=== PATIENT | male | born 1975 | race Caucasian/White ===

== ENCOUNTER 2019-05-09 17:54 | Inpatient (IN) | payer SELFPAY ==
[2019-05-09] MEDS ORDERED: BUPIVACAINE 0.5% PF 10 ML VIAL ONE (18:29)
[2019-05-09] MEDS ORDERED: ONDANSETRON 4 MG/2 ML VIAL ONE (18:29)
[2019-05-09] MEDS ORDERED: LIDOCAINE 1% MPF 5 ML VIAL ONE (18:29)
[2019-05-09] MEDS ORDERED: MORPHINE 4 MG/ML SYR ONE (18:29)
--- NOTE | 2019-05-09 18:29 | RAD REPORT ---
EXAM DESCRIPTION: RAD - Hand Left 3 View - 05/09/2019 6:22 pm CLINICAL HISTORY: SMASH INJURY COMPARISON: <Comparisons> FINDINGS: Mildly displaced fracture of the middle phalanx of the fourth finger is seen. Mild tuft fr acture is also present distal fourth finger.
[2019-05-09] MEDS ORDERED: TETANUS & DIPHTHERIA TOX,ADULT 0.5 ML VIAL ONE (18:30)
[2019-05-09] MEDS ORDERED: AMPICILLIN/SULB 1.5 GM/100 ML BAG IV SCH (19:00)
--- NOTE | 2019-05-09 19:55 | ER ---
Nurse's Notes [facility] Name: Lio Burton Age: 43 yrs Sex: Male : 1975 Arrival Date: 05/09/2019 Time: 17:59 Bed 17 Private MD: Diagnosis: Laceration without foreign body of left little finger without damage to nail;Laceration without foreign body of left middle finger with damage to nail;Laceration without foreign body of left ring finger without damage to nail;Displaced fracture of medial phalanx of left ring finger-Open Fracture;Mild Tuft Fracture of Left Distal Fourth Finger Presentation: 05/09 18:04 Presenting complaint: Patient states: I cut my fingers on my right hand under the lawn la1 mower, multiple lacerations to distal fingers on left hand, no bleeding at this time. Transition of care: patient was not received from another setting of care. Complicating Factors: There are no complicating factors for this patient. Onset of symptoms was May 09, 2019. Risk Assessment: Do you want to hurt yourself or someone else? Patient reports no desire to harm self or others. Initial Sepsis Screen: Does the patient meet any 2 criteria? No. Patient's initial sepsis screen is negative. Does the patient have a suspected source of infection? No. Patient's initial sepsis screen is negative. Care prior to arrival: None. 18:04 Method Of Arrival: Ambulatory la1 18:04 Acuity: MAY 3 la1 Historical: - Allergies: 18:05 No Known Allergies; la1 - PMHx: 18:05 None; la1 - Immunization history:: Adult Immunizations up to date. - Social history:: Smoking status: Patient uses tobacco products, smokes one pack cigarettes per day. - Ebola Screening: : No symptoms or risks identified at this time. Screenin:30 Abuse screen: Denies threats or abuse. Nutritional screening: No deficits noted. em Tuberculosis screening: No symptoms or risk factors identified. Fall Risk None identified. Assessment: 18:30 General: Appears in no apparent distress. uncomfortable, Behavior is calm, cooperative. em Pain: Complains of pain in dorsal aspect of distal phalanx of left middle finger, dorsal aspect of distal phalanx of left ring finger and dorsal aspect of distal phalanx of left little finger Pain currently is 10 out of 10 on a pain scale. Pain began 1 hour ago. Neuro: Level of Consciousness is awake, alert, obeys commands, Oriented to person, place, time, situation. Cardiovascular: Capillary refill < 3 seconds Patient's skin is warm and dry. Respiratory: Airway is patent Respiratory effort is even, unlabored, Respiratory pattern is regular, symmetrical. Derm: Skin is intact, is healthy with good turgor, Skin is pink, warm \T\ dry. Musculoskeletal: Range of motion: intact in DIP of left little finger, DIP of left ring finger and DIP of left middle finger. Injury Description: Laceration sustained to dorsal aspect of distal phalanx of left middle finger, dorsal aspect of distal phalanx of left ring finger and dorsal aspect of distal phalanx of left little finger is contaminated, 0.5 to 2.5 cm long, bleeding moderately, was sustained 1-2 hours ago. is bleeding a small amount. 19:48 Reassessment: No changes from previously documented assessment. Patient and/or family tr5 updated on plan of care and expected duration. Pain level reassessed. Patient is alert, oriented x 3, equal unlabored respirations, skin warm/dry/pink. 20:46 Reassessment: No changes from previously documented assessment. Patient and/or family tr5 updated on plan of care and expected duration. Pain level reassessed. Patient is alert, oriented x 3, equal unlabored respirations, skin warm/dry/pink. 21:31 Reassessment: No changes from previously documented assessment. Patient and/or family tr5 updated on plan of care and expected duration. Pain level reassessed. 21:41 Reassessment: Pt instructed on need for admission. Pt verbalized understanding. Pt tr5 AAOX4 with no signs/symptoms of distress. Pt IV site patent and intact. Vital Signs: 18:05 BP 140 / 82; Pulse 82; Resp 16; Temp 97.5; Pulse Ox 98% on R/A; Weight 68.04 kg; Height la1 5 ft. 9 in. (175.26 cm); 20:00 BP 135 / 80; Pulse 80; Resp 16; Pulse Ox 100% on R/A; tr5 18:05 Body Mass Index 22.15 (68.04 kg, 175.26 cm) la1 ED Course: 17:59 Patient arrived in ED. as 18:05 Triage completed. la1 18:05 Arm band placed on left wrist. la1 18:10 Gregory De La Vega LVN is Primary Nurse. em 18:18 Que Martínez NP is PHCP. pm1 18:18 Shantanu Cyr MD is Attending Physician. pm1 18:22 Hand Left 3 View XRAY In Process Unspecified. EDMS 18:30 Patient has correct armband on for positive identification. Bed in low position. Call em light in reach. Adult w/ patient. 19:00 Inserted saline lock: 20 gauge in right antecubital area, using aseptic technique. tr5 19:23 Primary Nurse role handed off by Gregory De La Vega LVN tr5 19:23 Waldemar Musa, CLAIR is Primary Nurse. tr5 19:23 Waldemar Musa RN is Primary Nurse. tr5 19:46 Chuck Munoz DO is Hospitalizing Provider. pm1 20:05 metal splint applied to left 4th finger with kerlex. nonadherent dressing to 3rd, 4th ak1 and 5th fingers. 20:46 Awaiting bed assignment. tr5 21:40 transfer transportation to receiving facility. tr5 21:40 No provider procedures requiring assistance completed. Patient admitted, IV remains in tr5 place. Administered Medications: 18:25 Not Given (Duplicate Order): Ancef 1 grams IM once pm1 18:28 Not Given (Physician Discretion): Ancef 1 grams IVPB once em 18:40 Drug: morphine 4 mg Route: IVP; Site: right antecubital; iw 19:47 Follow up: Response: Anxiety decreased; RASS: Alert and Calm (0) tr5 18:40 Drug: Zofran 4 mg Route: IVP; Site: right antecubital; iw 19:47 Follow up: Response: No adverse reaction; Nausea is decreased tr5 18:45 Drug: Tetanus-Diphtheria Toxoid Adult 0.5 ml {Special Investigation Unit Investigator: [employer]. Exp: iw 12/20/2020. Lot #: [id number]. } Route: IM; Site: right deltoid; 21:33 Follow up: Response: No adverse reaction tr5 19:02 Drug: Lidocaine (1 %) 5 ml {Note: administered by RICHY Grey.} Volume: 5 ml; Route: em Infiltration; Site: wound; 19:03 Drug: Bupivacaine (0.5 %) 10 ml {Note: administered by RICHY Grey.} Volume: 10 ml; em Route: Infiltration; Site: wound; 19:47 Drug: Unasyn 1.5 grams Route: IVPB; Infused Over: 30 mins; Site: right antecubital; tr5 20:19 Follow up: Response: No adverse reaction; IV Status: Completed infusion; IV Intake: tr5 100ml Intake: 20:19 IV: 100ml; Total: 100ml. tr5 Outcome: 19:54 Decision to Hospitalize by Provider. pm1 21:40 Admitted to Med/surg accompanied by nurse, via wheelchair, with chart, Report called to tr5 Josefa SELF 21:40 Condition: stable 21:40 Instructed on the need for admit. 21:53 Patient left the ED. tr5 Signatures: Dispatcher [employer] EDGregory Bass, WIRELESS SALES MANAGER WIRELESS SALES MANAGER Dea Figueroa Irene, RN CLAIR iw Waqar Jordan RN RN la1 Teresa Collins RN RN ak1 Que Martínez NP DIGITAL MARKETING APPRENTICE pm1 Waldemar Musa RN RN tr5
--- NOTE | 2019-05-09 19:56 | EDPHYS ---
Physician Documentation [facility] Name: Lio Burton Age: 43 yrs Sex: Male : 1975 Arrival Date: 05/09/2019 Time: 17:59 Bed 17 Private MD: ED Physician Shantanu Cyr HPI: 05/09 18:24 This 43 yrs old Male presents to ER via Ambulatory with complaints of pm1 Laceration - Fingers. 18:24 The patient or guardian reports a laceration. The complaints affect the left middle pm1 finger, left ring finger and left little finger. Context: The problem was sustained outdoors, resulted from putting left hand into moving senior java engineer blade. Onset: The symptoms/episode began/occurred just prior to arrival. Modifying factors: The symptoms are alleviated by holding still, the symptoms are aggravated by movement. Associated signs and symptoms: Pertinent negatives: cyanosis distally, decreased sensation distally, numbness distally, tingling distally. The patient has not experienced similar symptoms in the past. The patient has not recently seen a physician, and does not have an established primary care provider. Historical: - Allergies: 18:05 No Known Allergies; la1 - PMHx: 18:05 None; la1 - Immunization history:: Adult Immunizations up to date. - Social history:: Smoking status: Patient uses tobacco products, smokes one pack cigarettes per day. - Ebola Screening: : No symptoms or risks identified at this time. ROS: 18:24 Constitutional: Negative for fever, chills, and weight loss, Cardiovascular: Negative pm1 for chest pain, palpitations, and edema, Respiratory: Negative for shortness of breath, cough, wheezing, and pleuritic chest pain, Abdomen/GI: Negative for abdominal pain, nausea, vomiting, diarrhea, and constipation, Back: Negative for injury and pain. 18:24 MS/extremity: Positive for laceration, pain, of the left little finger and left ring finger and left middle finger. 18:24 Skin: Positive for laceration(s), of the left little finger and left ring finger and left middle finger. 18:24 Neuro: Negative for numbness, tingling. Exam: 18:25 Constitutional: This is a well developed, well nourished patient who is awake, alert, pm1 and in no acute distress. Head/Face: Normocephalic, atraumatic. Neck: Trachea midline, no thyromegaly or masses palpated, and no cervical lymphadenopathy. Supple, full range of motion without nuchal rigidity, or vertebral point tenderness. No Meningismus. Chest/axilla: Normal chest wall appearance and motion. Nontender with no deformity. No lesions are appreciated. Cardiovascular: Regular rate and rhythm with a normal S1 and S2. No gallops, murmurs, or rubs. Normal PMI, no JVD. No pulse deficits. Respiratory: Lungs have equal breath sounds bilaterally, clear to auscultation and percussion. No rales, rhonchi or wheezes noted. No increased work of breathing, no retractions or nasal flaring. Back: No spinal tenderness. No costovertebral tenderness. Full range of motion. 18:25 MS/ Extremity: Pulses equal, no cyanosis. Neurovascular intact. Full, normal range of motion. 18:25 Skin: Appearance: normal except for affected area, injury, laceration(s), the wound is approximately 2.5 cm(s), of the dorsal aspect of distal phalanx of left ring finger and dorsal aspect of middle phalanx of left ring finger, the second wound is approximately 1.5 cm(s), of the DIP of left middle finger, the third wound is approximately 1 cm(s), of the DIP of left little finger, that can be described as no foreign body, irregular. 18:25 Neuro: Orientation: is normal, Motor: is normal, moves all fours, Sensation: is normal, no obvious gross deficits, Gait: is steady, at a normal pace, without difficulty. Vital Signs: 18:05 BP 140 / 82; Pulse 82; Resp 16; Temp 97.5; Pulse Ox 98% on R/A; Weight 68.04 kg; Height la1 5 ft. 9 in. (175.26 cm); 20:00 BP 135 / 80; Pulse 80; Resp 16; Pulse Ox 100% on R/A; tr5 18:05 Body Mass Index 22.15 (68.04 kg, 175.26 cm) la1 Laceration: 19:45 Wound Repair of 5cm ( 2.0in ) subcutaneous laceration to dorsal aspect of middle pm1 phalanx of left ring finger and dorsal aspect of distal phalanx of left little finger and dorsal aspect of distal phalanx of left ring finger and dorsal aspect of distal phalanx of left middle finger. Irregularly shaped.. Distal neuro/vascular/tendon intact. Anesthesia: Local anesthetic administered with 3 mls of Lido/Marcaine. Wound prep: Extensive cleansing with betadine with hibiclenz by me, Wound irrigation with saline by me, Wound explored extensively, Copious irrigation. Skin closed with 8 5-0 Prolene using simple sutures and sterile technique. Dressed with 4x4's, tube gauze, non-adherent dressing. Patient tolerated well. MDM: 18:19 Patient medically screened. pm1 19:44 Physician consultation: Marlon Ingram MD was contacted at 19:40, regarding consult, pm1 patient's condition, and will see patient tomorrow morning. would like admission per Dr. Angelic Chavez MD. 19:55 Data reviewed: vital signs. Data interpreted: Pulse oximetry: on room air is 98 %. pm1 Interpretation: normal. Counseling: I had a detailed discussion with the patient and/or guardian regarding: the historical points, exam findings, and any diagnostic results supporting the discharge/admit diagnosis, radiology results, the need for further work-up and treatment in the hospital. 19:56 Physician consultation: Angelic Chavez MD was called at 19:59, was contacted at 19:59, pm1 regarding admission, patient's condition. 05/09 21:16 Order name: Comprehensive Metabolic Panel [facility] 05/09 21:16 Order name: Comprehensive Metabolic Panel [facility] 05/09 18:06 Order name: Hand Left 3 View XRAY; Complete Time: 18:30 la1 05/09 18:23 Order name: Prolene, Sutures; Complete Time: 18:30 pm1 05/09 21:17 Order name: CONS Pharmacy Consult [facility] 05/09 21:17 Order name: CONS Physician Consult [facility] 05/09 18:23 Order name: Dressing - Wound; Complete Time: 20:06 pm1 05/09 18:23 Order name: Gloves, Sterile; Complete Time: 18:30 pm1 05/09 18:23 Order name: Setup Suture Tray; Complete Time: 18:30 pm1 05/09 18:27 Order name: NPO; Complete Time: 18:30 pm1 Administered Medications: 18:25 Not Given (Duplicate Order): Ancef 1 grams IM once pm1 18:28 Not Given (Physician Discretion): Ancef 1 grams IVPB once em 18:40 Drug: morphine 4 mg Route: IVP; Site: right antecubital; iw 19:47 Follow up: Response: Anxiety decreased; RASS: Alert and Calm (0) tr5 18:40 Drug: Zofran 4 mg Route: IVP; Site: right antecubital; iw 19:47 Follow up: Response: No adverse reaction; Nausea is decreased tr5 18:45 Drug: Tetanus-Diphtheria Toxoid Adult 0.5 ml {Chlorine Operator: [employer]. Exp: iw 12/20/2020. Lot #: [id number]. } Route: IM; Site: right deltoid; 21:33 Follow up: Response: No adverse reaction tr5 19:02 Drug: Lidocaine (1 %) 5 ml {Note: administered by Que WOOD TREATING INSPECTOR.} Volume: 5 ml; Route: em Infiltration; Site: wound; 19:03 Drug: Bupivacaine (0.5 %) 10 ml {Note: administered by Que WOOD TREATING INSPECTOR.} Volume: 10 ml; em Route: Infiltration; Site: wound; 19:47 Drug: Unasyn 1.5 grams Route: IVPB; Infused Over: 30 mins; Site: right antecubital; tr5 20:19 Follow up: Response: No adverse reaction; IV Status: Completed infusion; IV Intake: tr5 100ml Disposition: 05/09/19 19:54 Hospitalization ordered by Chuck Munoz for Observation. Preliminary diagnosis are Displaced fracture of medial phalanx of left ring finger - Open Fracture, Laceration without foreign body of left little finger without damage to nail, Laceration without foreign body of left middle finger with damage to nail, Laceration without foreign body of left ring finger without damage to nail, Mild Tuft Fracture of Left Distal Fourth Finger. - Bed requested for Telemetry/MedSurg (observation). - Status is Observation. tr5 - Condition is Stable. - Problem is new. - Symptoms have improved. UTI on Admission? No Addendum: 05/11/2019 10:02 Co-signature as Attending Physician, Shantanu Cyr MD I agree with the assessment and c campbell plan of care. Signatures: Dispatcher [employer] Shantanu Wallace MD MD cha Munoz, Edgar, PULL TAB DEALER PULL TAB DEALER Saima Giron, CLAIR SELF iw Waqar Jordan RN RN la1 Nica Myers, CLAIR RN cg Que Martínez, WOOD TREATING INSPECTOR WOOD TREATING INSPECTOR pm1 Waldemar Musa RN RN tr5 Corrections: (The following items were deleted from the chart) 05/09 19:57 19:44 Physician consultation: Marlon Ingram MD was contacted at 19:40, regarding pm1 consult, patient's condition, and will see patient tomorrow morning. would like admission per Dr. Chuck Munoz DO pm1 21:21 19:54 Hospitalization Ordered by Chuck Munoz DO for Observation. Preliminary cg diagnosis is Displaced fracture of medial phalanx of left ring finger - Open FractureLaceration without foreign body of left little finger without damage to nail; Laceration without foreign body of left middle finger with damage to nail; Laceration without foreign body of left ring finger without damage to nail; Mild Tuft Fracture of Left Distal Fourth Finger. Bed requested for Telemetry/MedSurg (observation). Status is Observation. Condition is Stable. Problem is new. Symptoms have improved. UTI on Admission? No. pm1 21:53 21:21 05/09/2019 19:54 Hospitalization Ordered by Chuck Munoz DO for Observation. tr5 Preliminary diagnosis is Displaced fracture of medial phalanx of left ring finger - Open FractureLaceration without foreign body of left little finger without damage to nail; Laceration without foreign body of left middle finger with damage to nail; Laceration without foreign body of left ring finger without damage to nail; Mild Tuft Fracture of Left Distal Fourth Finger. Bed requested for Telemetry/MedSurg (observation). Status is Observation. Condition is Stable. Problem is new. Symptoms have improved. UTI on Admission? No. cg
[2019-05-09] MEDS ORDERED: MAGNESIUM HYDROXIDE 8% 30 ML PO PRN (21:08)
[2019-05-09] MEDS ORDERED: ONDANSETRON 4 MG/2 ML VIAL IV PRN (21:08)
[2019-05-09] MEDS ORDERED: HYDROMORPHONE HCL 1 MG/ML INJ IV PRN (21:08)
[2019-05-09] MEDS ORDERED: VANCOMYCIN/NS 1 gm 1 GM/250 ML BAG IVPB SCH (21:15)
[2019-05-09] MEDS: ACETAMINOPHEN 500 MG TAB PO PRN (22:46)
[2019-05-09] MEDS: NA CHLORIDE 0.9% 1,000 ML IV SCH (22:46)
[2019-05-09] MEDS ORDERED: VANCOMYCIN 1 GM/250 ML BAG IV SCH (23:30)
[2019-05-09] MEDS ORDERED: VANCOMYCIN 1 GM/VIAL ONE (23:36)
[2019-05-09] MEDS ORDERED: NA CHLORIDE 0.9% 250 ML ONE (23:37)
[2019-05-09] MEDS ORDERED: AMPICILLIN/SULBACTAM 3GM/VIAL ONE (23:46)
[2019-05-10] MEDS ORDERED: AMPICILLIN/SULBACT 3 GM in NA CHLORIDE 0.9% 100 ML IVPB SCH ×2
[2019-05-10 06:01] LABS: Absolute Lymphocytes (CBC) 2.6 K/uL (0.7-4.9); Basophils % 0.5 % (0-1.3); Hematocrit 40.9 % (39.6-49.0); Lymphocytes % 23.3 % (15.3-44.8); MPV 8.1 fL (7.6-11.3); RBC Red Blood Cell Count 4.58 M/uL (4.33-5.43)
[2019-05-10 06:15] LABS: ALT/SGPT 21 U/L (12-78); AST/SGOT 11 U/L (15-37); Albumin 3.2 g/dL (3.4-5.0); Alkaline Phosphatase 59 U/L (45-117); BUN Blood Urea Nitrogen 15 mg/dL (7-18); Bicarbonate 27 mmol/L (21-32); Bilirubin Total 0.3 mg/dL (0.2-1.0); Glucose Level 90 mg/dL (74-106); Magnesium 2.1 mg/dL (1.8-2.4); Phosphorus 3.9 mg/dL (2.5-4.9); Potassium 3.9 mmol/L (3.5-5.1); Protein, Total 6.2 g/dL (6.4-8.2); Sodium Level 143 mmol/L (136-145)
[2019-05-10] MEDS ORDERED: KCL 20 MEQ/100 mL IVPB 20 MEQ/100 ML BAG IV SCH (07:00)
--- NOTE | 2019-05-10 07:06 | P.HP ---
Certification for Inpatient Patient admitted to: Inpatient With expected LOS: >2 Midnights Patient will require the following post-hospital care: None Practitioner: I am a practitioner with admitting privileges, knowledge of patient current condition, hospital course, and medical plan of care. Services: Services provided to patient in accordance with Admission requirements found in Title 42 Section 412.3 of the Code of Federal Regulations Patient History Date of Service: 05/09/19 Reason for admission: Hand laceration and hand fracture History of Present Illness: Patient is a 43-year-old gentleman who came to the hospital after suffering multiple lacerations on his hand. Patient also suffered a displaced fracture of the middle phalanx of the fourth finger. A tuft fracture is also present distal fourth finger. Patient had multiple lacerations which were sutured by the physician chemist assistant in the emergency room. This was washed out thoroughly and patient was started on IV antibiotics. Hand surgery consultation pending. Patient with no medical history. Patient will be low risk for any cardiopulmonary complications. Allergies No Known Allergies Allergy (Unverified 03/07/15 12:43) Home Medications: NK [No Home Meds] 05/09/19 - Past Medical/Surgical History Has patient received pneumonia vaccine in the past: No Diabetic: No Past Medical History: Patient denies medical history Past Surgical History: Patient denies surgical history - Family History Father Family History: Reviewed- Non-Contributory - Social History Smoking Status: Current every day smoker Alcohol use: No CD- Drugs: No Caffeine use: Yes Place of Residence: Home Review of Systems 10-point ROS is otherwise unremarkable Physical Examination - Vital Signs Temperature: 97.3 F Blood Pressure: 129/81 Pulse: 74 Respirations: 16 Pulse Ox (%): 100 - Physical Exam General: Alert, In no apparent distress, Oriented x3 HEENT: Atraumatic, PERRLA, Mucous membr. moist/pink, EOMI, Sclerae nonicteric Neck: Supple, 2+ carotid pulse no bruit, No LAD, Without JVD or thyroid abnormality Respiratory: Clear to auscultation bilaterally, Normal air movement Cardiovascular: Regular rate/rhythm, Normal S1 S2 Gastrointestinal: Normal bowel sounds, No tenderness Musculoskeletal: Other ( Multiple laceration and fracture of the 4th phalanx of the left hand) Integumentary: Skin breakdown ( hand lacerations), Skin lesion Neurological: Normal gait, Normal speech, Normal strength at 5/5 x4 extr, Normal tone, Sensation intact, Cranial nerves 3-12 intact, Normal affect Lymphatics: No axilla or inguinal lymphadenopathy Assessment & Plan - Problems (Diagnosis) (1) Hand laceration Current Visit: Yes Status: Acute (2) Fracture of finger, distal phalanx, left, closed Current Visit: Yes Status: Acute - Plan 1. Continue with IV antibiotic 2. Continue with local wound care 3. Hand surgery consultation 4. Gentle IV hydration 5. Monitor CBC 6. Refrain from tobacco use /NPO after midnight 7. Pain control 8. GI and DVT prophylaxis Discharge Plan: Home Plan to discharge in: Greater than 2 days - Advance Directives Does patient have a Living Will: No Does patient have a Durable POA for Healthcare: No - Code Status/Comfort Care Code Status Assessed: Yes Code Status: Full Code Critical Care: No Time Spent Managing PTS Care (In Minutes): 45
[2019-05-10] MEDS: NA CHLORIDE 0.9% 1,000 ML IV SCH ×2 (08:00→12:39)
[2019-05-10] MEDS ORDERED: Levofloxacin500mg IV 500 MG/100 ML BAG IV SCH (08:00)
[2019-05-10] MEDS ORDERED: Ringers Lactate 1,000 ML IV ONE (08:54)
[2019-05-10] MEDS ORDERED: ENOXAPARIN 30 MG/0.3 ML SQ SCH (09:00)
[2019-05-10] MEDS: PIPER/TAZO/NS 3.375gm 3.375 GM/100 ML BAG IV SCH ×3 (09:27→17:00)
[2019-05-10] MEDS ORDERED: PROPOFOL 200 MG/20 ML VIAL IV ONE (09:29)
[2019-05-10] MEDS ORDERED: FENTANYL CITR 100 MCG/2 ML ONE (09:29)
[2019-05-10] MEDS ORDERED: LIDOCAINE 2% MPF 5 ML VIAL ONE (09:29)
[2019-05-10] MEDS ORDERED: dexAMETHasone 10 MG/ML VIAL ONE (10:10)
[2019-05-10] MEDS ORDERED: KETOROLAC 30 MG/ML INJ ONE (10:10)
[2019-05-10] MEDS ORDERED: ONDANSETRON 4 MG/2 ML VIAL ONE (10:10)
[2019-05-10] MEDS: HYDROMORPHONE HCL 1 MG/ML INJ ONE ×6 (10:50→11:15)
[2019-05-10] MEDS ORDERED: CODEINE 30MG/APAP 300MG TAB PO PRN (11:22)
--- NOTE | 2019-05-10 11:58 | P.PN ---
Subjective Date of Service: 05/10/19 Chief Complaint: Hand laceration and hand fracture Subjective: No C/O voiced, NPO, Doing well Review of Systems 10-point ROS is otherwise unremarkable Physical Examination - Vital Signs Temperature: 96.8 F Blood Pressure: 117/82 Pulse: 59 Respirations: 13 Pulse Ox (%): 100 - Physical Exam General: Alert, In no apparent distress HEENT: Atraumatic, PERRLA, EOMI Neck: Supple, JVD not distended Respiratory: Clear to auscultation bilaterally, Normal air movement Cardiovascular: Regular rate/rhythm, Normal S1 S2 Gastrointestinal: Normal bowel sounds, No tenderness Musculoskeletal: Erythema, Tenderness, Warmth Integumentary: No rashes Neurological: Normal speech, Normal tone, Normal affect Lymphatics: No axilla or inguinal lymphadenopathy - Studies Medications List Reviewed: Yes Assessment And Plan - Current Problems (Diagnosis) (1) Fracture of finger, distal phalanx, left, closed Current Visit: Yes Status: Acute Plan: Pt with Hand laceration and fracture of Finger -Plastic Surgery Consulted. Appreciated reccs -Awaiting Surgery at this time. Qualifiers: Encounter type: initial encounter Finger: middle finger Fracture alignment: displaced Qualified Code(s): S62.633A - Displaced fracture of distal phalanx of left middle finger, initial encounter for closed fracture (2) Hand laceration Current Visit: Yes Status: Acute Qualifiers: Encounter type: initial encounter Foreign body presence: without foreign body Laterality: left Qualified Code(s): S61.412A - Laceration without foreign body of left hand, initial encounter Discharge Plan: Home Plan to discharge in: Greater than 2 days - Code Status/Comfort Care Code Status Assessed: Yes Critical Care: No
[2019-05-10] MEDS ORDERED: VANCOMYCIN 1.25 GM in NA CHLORIDE 0.9% 250 ML IVPB SCH (12:00)
--- NOTE | 2019-05-10 15:16 | RAD REPORT ---
EXAM DESCRIPTION: RAD - Hand Left 2 View - 05/10/2019 3:02 pm CLINICAL HISTORY: Fourth middle phalanx fracture, surgical repair COMPARISON: May 09 FINDINGS: There were 3 portable C-arm images submitted during a fluoroscopic assisted fracture fixat ion of previously detailed fourth middle phalanx fracture. No suspicious or unexpected finding. Fluoro time was 2.4 minutes.
--- NOTE | 2019-05-10 17:19 | P.DS ---
Admission Date: 05/09/19 Discharge Date: 05/10/19 Disposition: ROUTINE DISCHARGE Discharge Condition: FAIR Reason for Admission: Hand laceration and hand fracture - Problems (1) Fracture of finger, distal phalanx, left, closed Current Visit: Yes Status: Acute Qualifiers: Encounter type: initial encounter Finger: middle finger Fracture alignment: displaced Qualified Code(s): S62.633A - Displaced fracture of distal phalanx of left middle finger, initial encounter for closed fracture (2) Hand laceration Current Visit: Yes Status: Acute Qualifiers: Encounter type: initial encounter Foreign body presence: without foreign body Laterality: left Qualified Code(s): S61.412A - Laceration without foreign body of left hand, initial encounter Brief History of Present Illness: Patient is a 43-year-old gentleman who came to the hospital after suffering multiple lacerations on his hand. Patient also suffered a displaced fracture of the middle phalanx of the fourth finger. A tuft fracture is also present distal fourth finger. Patient had multiple lacerations which were sutured by the physician medicine assistant in the emergency room. This was washed out thoroughly and patient was started on IV antibiotics. Hand surgery consultation pending. Patient with no medical history. Patient will be low risk for any cardiopulmonary complications. Hospital Course: Overall pt did well. Pt was admitted to the hospital after having hand laceration and was found to have fracture of middle phalanx. Plastic Surgery was consulted. pt was taken to the OR for wash out. Pt did well overall and post procedure was DC home under stable condition. Vital Signs/Physical Exam: Temp Pulse Resp BP Pulse Ox 97.0 F 61 16 99/69 100 05/10/19 16:00 05/10/19 16:00 05/10/19 16:00 05/10/19 16:00 05/10/19 16:00 General: Alert, In no apparent distress HEENT: Atraumatic, PERRLA, EOMI Neck: Supple, JVD not distended Respiratory: Clear to auscultation bilaterally, Normal air movement Cardiovascular: Regular rate/rhythm, Normal S1 S2 Gastrointestinal: Normal bowel sounds, No tenderness Musculoskeletal: Other (Left Hand in Cast) Integumentary: No rashes Neurological: Normal speech, Normal tone, Normal affect Lymphatics: No axilla or inguinal lymphadenopathy Laboratory Data at Discharge: WBC 11.0 K/uL (4.3-10.9) H 05/10/19 05:22 Hgb 13.7 g/dL (13.6-17.9) 05/10/19 05:22 Hct 40.9 % (39.6-49.0) 05/10/19 05:22 Plt Count 236 K/uL (152-406) 05/10/19 05:22 Sodium 143 mmol/L (136-145) 05/10/19 05:22 Potassium 3.9 mmol/L (3.5-5.1) 05/10/19 05:22 BUN 15 mg/dL (7-18) 05/10/19 05:22 Creatinine 0.81 mg/dL (0.55-1.3) 05/10/19 05:22 Glucose 90 mg/dL (74-106) 05/10/19 05:22 Phosphorus 3.9 mg/dL (2.5-4.9) 05/10/19 05:22 Magnesium 2.1 mg/dL (1.8-2.4) 05/10/19 05:22 Total Bilirubin 0.3 mg/dL (0.2-1.0) 05/10/19 05:22 AST 11 U/L (15-37) L 05/10/19 05:22 ALT 21 U/L (12-78) 05/10/19 05:22 Alkaline Phosphatase 59 U/L (45-117) 05/10/19 05:22 Home Medications: NK [No Home Meds] 05/09/19 Diet: Regular Activity: Ad nino Followup: Marlon Ingram MD [ACTIVE - CAN ADMIT] - 05/11/19 9:00 am
[2019-05-10] MEDS: ACETAMINOPHEN 500 MG TAB PO PRN (17:27)
[2019-05-10] MEDS ORDERED: SMZ./TMP. 800/160 MG TABLET PO SCH (21:00)
--- NOTE | 2019-05-11 08:33 | OP ---
Surgeon: Marlon Ingram MD Preoperative Diagnoses: Open fracture of the left ring finger, middle phalanx, open wound. Postoperative Diagnoses: Open fracture of the left ring finger, middle phalanx, open wound. Procedure Performed: Debridement of skin and subcutaneous tissue, simple closure of 2 cm wound, perc utaneous pinning. Anesthesia: General. Procedure In Detail: After satisfactory induction of general anesthesia, left hand was prepped with Betadine scrub, Betadine paint, dry sterile drapes applied in the usual manner. The arm was elevated , exsanguinated with an Esmarch. Tourniquet was inflated to 250 mmHg and hand placed on a [place]otal[place] ta ble. Suture was removed from previous closure over the dorsal aspect of the left middle finger over the ulnar side. Skin and subcu tissue were debrided. Dissection down the tendon had not been lacera papi but the bone was fractured. Jet lavage irrigation was performed with 1 L of dilute Betadine solu tion. Then, a fracture fragment into the larger bone of the middle phalanx. This was abo ut a 45 degrees angle. The pins were cut and bent. C-arm revealed adequate reduction. Tourniquet w as raised. Wound was closed with 4-0 Prolene simple sutures. Dressed with , deep in exten abe. The patient tolerated the procedure well and returned to Recovery. ZAID/NATE Voice ID: [id number] Report ID: [id number]
== END 2019-05-10 18:00 | disposition home or self-care (01) | DRG 514 ==
LOC: ER 17:54 → ERHOLD 21:26 → 4TH 21:43
PROVIDERS: ADMIT Hospitalist; ATTEND Family Medicine
PROC: 0JQK3ZZ Repair Left Hand Subcutaneous Tissue and Fascia, Percutaneous Approach (ICD-10-PCS; 2019-05-09)
PROC: 0PSV34Z Reposition Left Finger Phalanx with Internal Fixation Device, Percutaneous Approach (ICD-10-PCS; principal; 2019-05-10 09:00)
DX: S62.625B Displaced fracture of middle phalanx of left ring finger, initial encounter for open fracture (principal); S61.217A Laceration without foreign body of left little finger without damage to nail, initial encounter; S61.313A Laceration without foreign body of left middle finger with damage to nail, initial encounter; S61.215A Laceration without foreign body of left ring finger without damage to nail, initial encounter; F17.200 Nicotine dependence, unspecified, uncomplicated; W28.XXXA Contact with powered lawn mower, initial encounter; Z23 Encounter for immunization
CPT/HCPCS: 36415; 80053; 83735; 84100; 85025; 90471; 90714; 96365; 96375; 99285; J0295; J1100; J1170; J1650; J2405; J2543; J2704; J3010; J7030